=== PATIENT | female | born 1935 | race Hispanic/Latino ===

== ENCOUNTER 2023-09-10 06:43 | Emergency (ER) | payer MEDICARE ==
[~2023-09-10] VITALS: Ht 167.6 cm; Wt 67.6 kg
[2023-09-10] MEDS: ERYTHROMYCIN BASE 0.5% OPHTH OINT 1 GM TUBE OU SCH (09:27)
[2023-09-10] MEDS: LIDOCAINE 2%-EPI 1:200,000 20 ML VIAL IJ SCH (09:27)
[2023-09-10] MEDS: TETANUS/DIPHTHERIA TOXOID [ADULT] 0.5 ML VIAL IM ONE (10:20)
[2023-09-10] MEDS: ACETAMINOPHEN 325 MG TAB PO ONE (10:21)
[2023-09-10 10:29] VITALS: BP 151/64; PULSE 71; RESP 18; O2SAT 99
== END 2023-09-10 11:02 | disposition home or self-care (01) ==
LOC: EDH 06:43
DX: S01.81XA Laceration without foreign body of other part of head, initial encounter (principal); S01.111A Laceration without foreign body of right eyelid and periocular area, initial encounter; H11.31 Conjunctival hemorrhage, right eye; W06.XXXA Fall from bed, initial encounter; Y93.89 Activity, other specified; Y92.89 Other specified places as the place of occurrence of the external cause; Y99.8 Other external cause status
CPT/HCPCS: 99285; 12053; 70450; 90714; 72125; 71250; 74176; 90471; 12011; 93005; J3490